=== PATIENT | male | born 1965 | race Caucasian/White ===

== ENCOUNTER 2019-07-02 09:41 | Outpatient (CLI) | payer OTHER | END 2019-07-02 23:59 | disposition home or self-care (01) | LOC: RAD 09:41 | PROVIDERS: ATTEND Internal Medicine Gastroenterology | DX: K21.9 Gastro-esophageal reflux disease without esophagitis (principal); R05 Cough; E66.01 Morbid (severe) obesity due to excess calories | CPT/HCPCS: 74230 ==

== ENCOUNTER 2019-07-17 18:46 | Emergency (ER) | payer OTHER ==
[~2019-07-17] VITALS: Ht 175.3 cm; Wt 142.6 kg
[2019-07-17 19:37] LABS: BASOPHILS # (AUTO) 0.03 x10^3/uL (0-0.1); BASOPHILS % (AUTO) 0 % (0-1); EOSINOPHILS % (AUTO) 2 % (1-7); LYMPHOCYTES # (AUTO) 1.62 x10^3/uL (1-3.4); LYMPHOCYTES % (AUTO) 16 % (22-44); MD NO; MEAN CORPUSCULAR HEMOGLOBIN 29.1 pg (27.5-34.5); MEAN CORPUSCULAR HGB CONC 33.1 g/dL (33.2-36.2); MEAN CORPUSCULAR VOLUME 88.2 fL (81-97); MEAN PLATELET VOLUME 9.6 fL (7.4-10.4); MONOCYTES # (AUTO) 0.72 x10^3/uL (0.2-0.8); MONOCYTES % (AUTO) 7 % (2-9); NEUTROPHILS # (AUTO) 7.74 x10^3/uL (1.8-6.8); NEUTROPHILS % (AUTO) 75 % (42-75); PLATELET COUNT 219 x10^3/uL (130-400); RED BLOOD COUNT 5.51 x10^6/uL (4.38-5.82); RED CELL DISTRIBUTION WIDTH 14.6 % (9.4-14.8)
[2019-07-17 19:46] LABS: ALBUMIN 3.8 g/dL (3.4-5.0); ANION GAP 6 mmol/L (5-15); CALCIUM 9.1 mg/dL (8.5-10.1); CHLORIDE 106 mmol/L (98-107); CREATININE 1.17 mg/dL (0.7-1.3)
[2019-07-17 19:50] LABS: TROPONIN I < 0.015 ng/mL (0.000-0.045)
[2019-07-17] MEDS ORDERED: POTASSIUM CHLORIDE 20 MEQ TAB.ER.PRT PO ONE (20:30)
[2019-07-17] MEDS ORDERED: POTASSIUM CHLORIDE 20 MEQ PACKET ONE (20:43)
--- NOTE | 2019-07-17 20:56 | NUR ---
updated patient on plan of care. no noted acute distress. tolerating interventions well. will continue to monitor.
[2019-07-17] MEDS ORDERED: HYDROCHLOROTHIAZIDE 25 MG TABLET PO ONE (21:00)
[2019-07-17 22:17] VITALS: BP 154/108
== END 2019-07-17 22:24 | disposition home or self-care (01) ==
LOC: ED 21:50
DX: R60.1 Generalized edema (principal); J81.1 Chronic pulmonary edema; E11.9 Type 2 diabetes mellitus without complications
CPT/HCPCS: 36415; 71046; 76700; 80048; 82040; 83880; 84484; 85025; 93005; 99284

== ENCOUNTER 2019-08-25 12:33 | Outpatient (CLI) | payer OTHER ==
[~2019-08-25 12:33] MED LIST: REGADENOSON 0.4 MG/5 ML SYRINGE ONE
== END 2019-08-25 23:59 | disposition home or self-care (01) ==
LOC: CFH 12:33
PROVIDERS: ATTEND Genetic Counselor, MS
DX: R94.31 Abnormal electrocardiogram [ECG] [EKG] (principal); R06.02 Shortness of breath
CPT/HCPCS: 78452; 93017; A9502; J2785

== ENCOUNTER → 2019-11-06 | Outpatient (CLI) | payer OTHER | END | disposition home or self-care (01) | LOC: CVU 13:01 | PROVIDERS: ATTEND Genetic Counselor, MS | DX: I11.9 Hypertensive heart disease without heart failure (principal) | CPT/HCPCS: 93306 ==